=== PATIENT | female | born 2000 | race Caucasian/White ===

== ENCOUNTER 2024-01-25 18:37 | Emergency (ER) | payer BC ==
[~2024-01-25] VITALS: Ht 154.9 cm; Wt 95.3 kg
[2024-01-25 19:20] VITALS: BP 129/77; PULSE 95; RESP 18; TEMP 98.2; O2SAT 99
[2024-01-25 21:15] VITALS: BP 132/80; PULSE 91; RESP 18; TEMP 98; O2SAT 99
== END 2024-01-25 21:59 | disposition left against medical advice (07) ==
LOC: MED 18:37
DX: J00 Acute nasopharyngitis [common cold] (principal); R09.81 Nasal congestion; Z53.21 Procedure and treatment not carried out due to patient leaving prior to being seen by health care provider